=== PATIENT | female | born 1985 | race African-American/Black ===

== ENCOUNTER 2020-01-12 21:39 | Emergency (ER) | payer OTHER ==
[2020-01-12 21:43] VITALS: BP 130/74; PULSE 79; TEMP 97.9; BMI 29.9
[2020-01-12] MEDS ORDERED: DIPHTH,PERTUSS(ACELL),TET 0.5 ML DISP.SYRIN IM ONE ×2 (21:48→22:32)
--- NOTE | 2020-01-12 21:49 | PDOC ---
Rapid Medical Evaluation Chief Complaint: Blood/Body Fluid Exposure [facility] Time Seen by Provider: 01/12/20 21:43 Medical Evaluation: Allergies Allergy/AdvReac Type Severity Reaction Status Date / Time No Known Allergies Allergy Verified 01/12/20 21:42 Vital Signs Temp Pulse Resp BP Pulse Ox 97.9 F 79 18 130/74 100 01/12/20 21:42 01/12/20 21:42 01/12/20 21:42 01/12/20 21:42 01/12/20 21:42 01/12/20 21:46 Pt presents to the ER after a needle stick to the L thumb. She states she was giving an insulin shot when the patient turned and she stuck herself. She did bleed. Exam: needle pam to the dorsal L 1st digit Orders: exposure order set Pt to proceed to the ER for further evaluation Discharge Disposition - Diagnosis Needle stick injury - Referrals - Patient Instructions
[2020-01-12 22:13] LABS: BASO % 0.7 % (0-2.0); EOS % 1.4 % (0-4.5); HEMATOCRIT 36.8 % (32.4-45.2); HEMOGLOBIN 12.4 GM/dL (10.7-15.3); LYMPH % 44.8 % (8-40); MCH 28.8 pg (25.7-33.7); MCHC 33.7 g/dl (32.0-36.0); MEAN CELL VOLUME 85.6 fl (80-96); MEAN PLT VOLUME 7.7 fl (7.5-11.1); MONO % 9.1 % (3.8-10.2); PLATELET COUNT 243 K/MM3 (134-434); RDW 13.3 % (11.6-15.6); WHITE BLOOD COUNT 5.5 K/mm3 (4.0-10.0)
--- NOTE | 2020-01-12 22:45 | PDOC ---
Post Exposure HPI - General Chief Complaint: Blood/Body Fluid Exposure [facility] Stated Complaint: NEEDLE STICK Time Seen by Provider: 01/12/20 21:43 History Source: Patient - History of Present Illness Initial Comments: 01/12/20 22:43 34-year-old female [employer] employee reported needlestick with insulin syringe to and admitted patient. Patient reports that she immediately washed her hands and squeezed out blood prior after Past History - Past Medical History Allergies/Adverse Reactions: Allergies Allergy/AdvReac Type Severity Reaction Status Date / Time No Known Allergies Allergy Verified 01/12/20 21:42 Home Medications: Ambulatory Orders Pnv,Calcium 72/Iron,Carb/Folic [ Plus Iron Tablet] 1 each PO DAILY 03/07 COPD: No - Psycho Social/Smoking Cessation Hx Smoking History: Never smoked Review of Systems - Review of Systems Able to Perform ROS?: Yes Is the patient limited [place] proficient: No *Physical Exam - Vital Signs Last Vital Signs Temp Pulse Resp BP Pulse Ox 97.9 F 79 18 130/74 100 01/12/20 21:42 01/12/20 21:42 01/12/20 21:42 01/12/20 21:42 01/12/20 21:42 - Physical Exam General Appearance: Yes: Appropriately Dressed Integumentary: positive: Normal Color, Dry, Warm Neurologic: positive: Fully Oriented, Alert, Normal Mood/Affect ED Progress Note - Progress Note Progress Note: 01/13/20 02:42 A: needle stick injury P: patient labs done. source patient to be tested. Medical Decision Making - Medical Decision Making 01/12/20 22:44 source patient Patient Name: NARENDRA MERCADO Date of : 06/16/1967 patient agrees to have labs done. pending orders by admitting team 0 Discharge - Discharge Information Problems reviewed: Yes Clinical Impression/Diagnosis: Needle stick injury Condition: Stable Disposition: HOME - Follow up/Referral - Patient Discharge Instructions Patient Printed Discharge Instructions: How to Handle Body Fluid Exposure -- Healthcare Worker Additional Instructions: Please follow-up with employee health for your rest of your papers - Post Discharge Activity Work/Back to School Note: Back to Work
[2020-01-12 22:53] LABS: ALBUMIN 3.9 g/dl (3.4-5.0); ALK PHOS 88 U/L (45-117); ANION GAP 6 MMOL/L (8-16); BILIRUBIN,TOTAL 0.5 mg/dL (0.2-1); BLOOD UREA NITROGEN 11.3 mg/dL (7-18); CALCIUM 9.3 mg/dL (8.5-10.1); CHLORIDE 106 mmol/L (98-107); CO2 25 mmol/L (21-32); CREATININE 0.8 mg/dL (0.55-1.3); GLUCOSE,RANDOM 93 mg/dL (74-106); POTASSIUM 3.7 mmol/L (3.5-5.1); SGOT/AST 12 U/L (15-37); SGPT/ALT 13 U/L (13-61); SODIUM 136 mmol/L (136-145); TOT PROT 8.3 g/dl (6.4-8.2)
[2020-01-14 04:16] LABS: HEP B CORE AB, TOT Positive (Negative)
== END 2020-01-12 23:20 | disposition home or self-care (01) ==
LOC: JERFT 21:39
PROC: 3E0234Z Introduction of Serum, Toxoid and Vaccine into Muscle, Percutaneous Approach (ICD-10-PCS; principal; 2020-01-12)
DX: S61.032A Puncture wound without foreign body of left thumb without damage to nail, initial encounter (principal); W46.0XXA Contact with hypodermic needle, initial encounter; Y93.F9 Activity, other caregiving; Y92.238 Other place in hospital as the place of occurrence of the external cause; Y99.0 Civilian activity done for income or pay
CPT/HCPCS: 36415; 80053; 84702; 85025; 86317; 86704; 86706; 86803; 87340; 87389; 90715; 99283-25

== ENCOUNTER 2022-05-28 08:05 | Emergency (ER) | payer OTHER ==
[2022-05-28 08:14] VITALS: BP 122/82; PULSE 79; TEMP 97.6; BMI 31.8
[2022-05-28 10:08] LABS: SYPHILIS W/ RPR CONF NON-REACTIVE (NONREACTIVE)
[2022-05-28 10:38] LABS: HIV INTERPRETATION NEGATIVE (NEGATIVE)
== END 2022-05-28 09:00 | disposition home or self-care (01) ==
LOC: JERFT 08:05
DX: Z77.21 Contact with and (suspected) exposure to potentially hazardous body fluids (principal)
CPT/HCPCS: 36415; 86704; 86708; 86780; 86803; 87340; 87389; 87517; 99283-25

== ENCOUNTER 2023-09-28 08:43 | Emergency (ER) | payer OTHER ==
[2023-09-28 08:50] VITALS: BP 127/78; PULSE 80; RESP 18; TEMP 98.4; BMI 29.9
[2023-09-28] MEDS ORDERED: TETRACAINE 0.5% HCL 0.6ML DROPPER.BOTTLE OS ONE (09:10)
[2023-09-28] MEDS ORDERED: TETRACAINE 0.5% OPHTH SOLN 2 ML BOTTLE ONE (09:13)
[2023-09-28] MEDS ORDERED: ERYTHROMYCIN 0.5% OPHTHALMIC OINTMENT 3.5 GM TUBE OS SCH (10:00)
[2023-09-28] MEDS ORDERED: ERYTHROMYCIN 0.5% OPHTHALMIC OINTMENT 3.5 GM TUBE ONE (10:09)
== END 2023-09-28 10:57 | disposition home or self-care (01) ==
LOC: JER 08:43 → JERFT 08:43 → JER 10:57
DX: Z77.21 Contact with and (suspected) exposure to potentially hazardous body fluids (principal); H57.89 Other specified disorders of eye and adnexa
CPT/HCPCS: 99283-25